=== PATIENT | female | born 2005 | race Hispanic/Latino ===

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

== ENCOUNTER 2023-04-23 18:17 | Emergency (ER) | payer SELFPAY ==
[2023-04-23 20:54] LABS: SARS-CoV-2 NAA Rapid Test Not Detected (NotDetected)
== END 2023-04-23 21:05 | disposition home or self-care (01) ==
LOC: CSHERS 18:17
DX: J10.1 Influenza due to other identified influenza virus with other respiratory manifestations (principal); I10 Essential (primary) hypertension; Z20.822 Contact with and (suspected) exposure to COVID-19
CPT/HCPCS: 87081; 87430; 99283

== ENCOUNTER 2023-07-29 09:51 | Inpatient (IN) | payer MEDICAID, SELFPAY ==
[~2023-07-29 09:51] MED LIST changes: +Bupivacaine 0.25% HCL 30 ML VIAL ONE; -Bupivacaine/Epinephrine 0.25% 30 ML VIAL ONE
[2023-07-29] MEDS ORDERED: hydrALAZINE 20 MG/ML VIAL SLOW IVP PRN ×2 (12:23→14:13)
[2023-07-29 13:45] LABS: Fetal Membranes Rupture No Membranes Rupture (No Rupture)
[2023-07-29] MEDS ORDERED: Diphenoxylate HCl/Atropine Tablet PO PRN (14:13)
[2023-07-29] MEDS ORDERED: Docusate 100 MG CAP PO PRN (14:13)
[2023-07-29] MEDS ORDERED: Carboprost 250 MCG/ML AMP IM PRN (14:13)
[2023-07-29] MEDS ORDERED: Tranexamic Acid 1,000 MG/10 ML VIAL IVP PRN (14:13)
[2023-07-29] MEDS ORDERED: Misoprostol 200 MCG TAB PR PRN (14:13)
[2023-07-29] MEDS ORDERED: Ondansetron PF 4 MG/2 ML Vial IVP PRN ×2 (14:13→17:05)
[2023-07-29] MEDS ORDERED: Acetaminophen 500 MG TAB PO PRN (14:13)
[2023-07-29] MEDS ORDERED: fentaNYL 50 mcg/mL 1 mL Vial SLOW IVP PRN (14:13)
[2023-07-29] MEDS ORDERED: Promethazine HCl 25 MG/ML VIAL IM PRN ×2 (14:13→17:05)
[2023-07-29] MEDS ORDERED: Methylergonovine 0.2 MG/ML VIAL IM PRN (14:13)
[2023-07-29] MEDS ORDERED: Lactated Ringer's 1,000 ML IV SCH (14:15)
[2023-07-29] MEDS ORDERED: Oxytocin 30 units/NS 500 ML 500 ML IV SCH (14:15)
[2023-07-29] MEDS ORDERED: Ibuprofen 800 MG TAB PO PRN (14:18)
[2023-07-29] MEDS ORDERED: HYDROcodone/Acetaminophen 5/325 mg Tablet PO PRN (14:18)
[2023-07-29] MEDS ORDERED: Lidocaine 1% (PF) 30 ML VIAL SC PRN (14:18)
[2023-07-29] MEDS ORDERED: Penicillin G Potassium 5 MILL.UNITS in Sodium Chloride 0.9% 100 ML IVPB SCH (14:30)
[2023-07-29 14:55] LABS: Hematocrit 31.2 % (34.9-44.5); Hemoglobin 9.5 g/dL (12.0-15.5); Mean Corpuscular HGB CONC 30.4 g/dL (32.0-36.0); Mean Corpuscular Hemoglobin 20.6 pg (27.0-33.0); Mean Corpuscular Volume 67.7 fl (81.6-98.3); Platelet Count 183 10x3/uL (150-450); RBC Distribution Width 18.5 % (11.5-14.5); Red Blood Cell (RBC) Count 4.61 10x6/uL (3.90-5.03)
[2023-07-29 15:23] LABS: HBSAg Index 0.23 S/CO (0-0.99); Hep B Surf Ag - L&D Non-Reactive S/CO (NonReactive)
[2023-07-29 15:24] LABS: HIV (1/2) Antibody/Antigen Non-Reactive (NonReactive); HIV 1/2 INDEX 0.07 S/CO (<1.00); Syphilis Antibody Nonreactive (Nonreactive); Syphilis Antibody Index 0.05 S/CO (<1.00 Non-Reactive)
[2023-07-29] MEDS ORDERED: ePHEDrine Sulfate 50 MG/10 ML VIAL SLOW IVP PRN (17:05)
[2023-07-29] MEDS ORDERED: Naloxone HCl 0.4 mg/ml Vial IVP PRN ×2 (17:05)
[2023-07-29] MEDS ORDERED: diphenhydrAMINE 50 MG/ML VIAL IVP PRN (17:05)
[2023-07-29] MEDS ORDERED: Moisturizing Cream (Eucerin) 113 GM JAR TOP PRN (17:05)
[2023-07-29] MEDS ORDERED: Lactated Ringer's 500 ML IV PRN (17:05)
[2023-07-29 17:15] VITALS: BMI 32.5
[2023-07-29] MEDS ORDERED: fentaNYL 2 mcg/Ropivacaine 0.2% Epidural 100 ML CADD EPIDURAL SCH (17:15)
[2023-07-29] MEDS ORDERED: Communication Order-Pharmacy FS SCH (17:15)
[2023-07-29] MEDS: fentaNYL/Ropivacaine Epidural 100 ML ONE (17:25)
[2023-07-29] MEDS ORDERED: Penicillin G 2.5 MILL.units 2.5 MILL.UNITS in Premix 1 BAG IVPB SCH (18:30)
[2023-07-30] MEDS ORDERED: fentaNYL 50 mcg/mL 1 mL Vial SLOW IVP PRN ×2 (03:00→03:20)
[2023-07-30] MEDS ORDERED: Meperidine HCl/PF 25 MG (1 mL) VIAL SLOW IVP PRN ×2 (03:00→03:20)
[2023-07-30] MEDS ORDERED: Communication Order-Pharmacy FS SCH ×2 (03:00→03:30)
[2023-07-30] MEDS ORDERED: Promethazine HCl 25 MG/ML VIAL IM PRN ×2 (03:00→03:20)
[2023-07-30] MEDS ORDERED: Naloxone HCl 0.4 mg/ml Vial IVP PRN ×4 (03:00→03:20)
[2023-07-30] MEDS ORDERED: Ketorolac Tromethamine 30 MG (1 mL) VIAL IVP PRN (03:00)
[2023-07-30] MEDS ORDERED: Naloxone HCl 0.4 mg/ml Vial IV PRN ×2 (03:00→03:20)
[2023-07-30] MEDS ORDERED: Ondansetron PF 4 MG/2 ML Vial IVP PRN ×4 (03:00→03:20)
[2023-07-30] MEDS ORDERED: HYDROmorphone 0.5 MG/0.5 ML SYRINGE SLOW IVP PRN (03:00)
[2023-07-30] MEDS ORDERED: Promethazine HCl 25 MG SUPP PR PRN ×2 (03:00→03:20)
[2023-07-30] MEDS ORDERED: diphenhydrAMINE 50 MG/ML VIAL IVP PRN ×2 (03:00→03:20)
[2023-07-30] MEDS ORDERED: Moisturizing Cream (Eucerin) 113 GM JAR TOP PRN ×2 (03:00→03:20)
[2023-07-30] MEDS ORDERED: Morphine 4 MG/ML VIAL SLOW IVP PRN (03:20)
[2023-07-30] MEDS ORDERED: Famotidine/PF 20 mg/2ml Vial SLOW IVP PRN (03:21)
[2023-07-30] MEDS ORDERED: Bicitra 30 ML UDCUP PO PRN (03:21)
[2023-07-30] MEDS ORDERED: Azithromycin 500 MG in Sodium Chloride 0.9% 250 ML 250 ML IVPB SCH (03:30)
[2023-07-30] MEDS ORDERED: CEFAZOLIN 2 GM in Sodium Chloride 0.9% 100 ML IVPB SCH (03:30)
[2023-07-30] MEDS ORDERED: Ketorolac Tromethamine 30 MG (1 mL) VIAL IVP SCH (03:30)
[2023-07-30 04:03] LABS: Analyzer IN Cardio CS NICU; RapidComm Collect By CBN
[2023-07-30 04:04] LABS: Analyzer IN Cardio CS NICU; RapidComm Collect By CBN; pH (Cord, venous) 7.349 (7.250-7.350)
[2023-07-30] MEDS: Ketorolac Tromethamine 30 MG (1 mL) VIAL IVP SCH (06:35)
[2023-07-30] MEDS ORDERED: Lanolin Ointment 7 GM TUBE TOP PRN (07:54)
[2023-07-30] MEDS ORDERED: Oxytocin 30 units/NS 500 ML 500 ML IV SCH (07:54)
[2023-07-30] MEDS ORDERED: Bisacodyl 10 MG SUPP PR PRN (07:54)
[2023-07-30] MEDS: Simethicone Chewable 80 MG TAB PO PRN (08:12)
[2023-07-30] MEDS: Ferrous Sulfate 325 MG TAB PO SCH (08:12)
[2023-07-30] MEDS: Acetaminophen 325 MG TAB PO PRN (08:13)
[2023-07-30] MEDS: Docusate 100 MG CAP PO SCH (08:56)
[2023-07-30] MEDS: diphenhydrAMINE 25 MG CAP PO PRN (08:56)
[2023-07-30] MEDS: Prenatal Vitamin 1 TAB PO SCH (08:56)
[2023-07-30] MEDS: Azithromycin 500 MG VIAL ONE (09:33)
[2023-07-30] MEDS: CEFAZOLIN 2 GM VIAL ONE (09:33)
[2023-07-30] MEDS: Lidocaine 2% MPF 10 ML AMP (For Epidural Use) ONE (09:34)
[2023-07-30] MEDS: Morphine PF 10 MG/10 ML VIAL ONE (09:34)
[2023-07-30] MEDS: Ondansetron PF 4 MG/2 ML Vial ONE (09:34)
[2023-07-30] MEDS: Dexmedetomidine 200 MCG/2 ML VIAL ONE (09:34)
[2023-07-30] MEDS: Dexamethasone 4 mg/ml Vial ONE (09:34)
[2023-07-30] MEDS: Boostrix 0.5 ML (Tdap) VIAL (>/=7 yrs of age) IM ONE (12:40)
[2023-07-30] MEDS: Ketorolac Tromethamine 30 MG (1 mL) VIAL IVP PRN (12:41)
[2023-07-30] MEDS: HYDROcodone/Acetaminophen 5/325 mg Tablet PO PRN (17:12)
[2023-07-31] MEDS: HYDROcodone/Acetaminophen 5/325 mg Tablet PO PRN (00:59)
[2023-07-31 04:17] LABS: Hematocrit 26.2 % (34.9-44.5); Hemoglobin 7.9 g/dL (12.0-15.5); Mean Corpuscular HGB CONC 30.2 g/dL (32.0-36.0); Mean Corpuscular Hemoglobin 20.4 pg (27.0-33.0); Mean Corpuscular Volume 67.5 fl (81.6-98.3); Platelet Count 141 10x3/uL (150-450); RBC Distribution Width 18.1 % (11.5-14.5); Red Blood Cell (RBC) Count 3.88 10x6/uL (3.90-5.03); White Blood Cell (WBC) Count 9.5 10x3/uL (3.5-10.5)
[2023-07-31] MEDS: Ibuprofen 800 MG TAB PO SCH (05:03)
[2023-08-01 07:57] VITALS: BP 115/57; TEMP 98.2
== END 2023-08-01 14:45 | disposition home or self-care (01) | DRG 787 ==
LOC: CSHLD/OP 09:51 → CSHLD 14:39 → CSHPP 07-30 07:30
PROVIDERS: ADMIT Obstetrics & Gynecology; ATTEND Obstetrics & Gynecology
PROC: 10907ZC Drainage of Amniotic Fluid, Therapeutic from Products of Conception, Via Natural or Artificial Opening (ICD-10-PCS; 2023-07-29)
PROC: 10D00Z1 Extraction of Products of Conception, Low, Open Approach (ICD-10-PCS; principal; 2023-07-30)
DX: O76 Abnormality in fetal heart rate and rhythm complicating labor and delivery (principal); D62 Acute posthemorrhagic anemia; O66.41 Failed attempted vaginal birth after previous cesarean delivery; O34.211 Maternal care for low transverse scar from previous cesarean delivery; Z3A.38 38 weeks gestation of pregnancy; Z37.0 Single live birth; O62.1 Secondary uterine inertia; O99.62 Diseases of the digestive system complicating childbirth; K66.0 Peritoneal adhesions (postprocedural) (postinfection); O90.81 Anemia of the puerperium
CPT/HCPCS: 36415; 36416; 51702; 82805; 84112; 85027; 86780; 86850; 86900; 86901; 87340; 87389; 88307; 90715; 99285; J0665; J1100; J1885; J2274; J2405

== ENCOUNTER 2025-05-24 19:50 | Emergency (ER) | payer MEDICAID, SELFPAY | END 2025-05-24 21:50 | disposition home or self-care (01) | LOC: CSHERS 19:50 | DX: J10.1 Influenza due to other identified influenza virus with other respiratory manifestations (principal); I10 Essential (primary) hypertension | CPT/HCPCS: 87428; 99283 ==